=== PATIENT | male | born 1940 | race Caucasian/White ===

== ENCOUNTER 2020-08-14 05:11 | Emergency (ER) | payer MEDICARE, SELFPAY ==
[2020-08-14] VITALS (10 sets, daily range): BP systolic 92–124; BP diastolic 63–77; PULSE 68–124; RESP 14–37; TEMP 37.1; O2SAT 92–100
--- NOTE | ~2020-08-14 | XR_ITS ---
EXAMINATION: XR chest 1V portable DATE: 08/14/2020 06:50 INDICATION: Shortness of breath. Hypoxia. Weakness. TECHNIQUE: A single frontal view of the chest was obtained. COMPARISON: Chest 2 views 10/06/2018, CT abdomen and pelvis 07/11/2018 FINDINGS: The lung volumes are normal. The lungs demonstrate lucencies and diffuse coarse interstitia l opacities with a basilar predominance. A calcified right lung nodule is consistent with old granulo matous disease. No pleural effusion or pneumothorax. The heart size is normal. IMPRESSION: 1. Worsened diffuse lung disease, likely mild pulmonary edema superimposed on a combination of emphys yung and chronic interstitial lung disease. Reviewed, dictated and finalized at location A. IMPRESSION: 1. Worsened diffuse lung disease, likely mild pulmonary edema superimposed on a combination of emphysema and chronic interstitial lung disease.
--- NOTE | 2020-08-14 05:34 | ECG_ITS ---
Measurements Intervals [place] Rate: 112 P: 80 KS: 145 QRS: 64 QRSD: 94 T: 18 QT: 326 QTc: 445 Interpretive Statements SINUS TACHYCARDIA POSSIBLE LEFT ATRIAL ENLARGEMENT NONSPECIFIC ST & T-WAVE ABNORMALITY- INFERIOR LEADS BASELINE ARTIFACT- I, II, III, AVR, AVL AVF, V1-V6 ABNORMAL ECG Electronically Signed On 08-14-2020 6:49:34 CDT by Rafael Mayfield D.O.
--- NOTE | 2020-08-14 05:43 | ED.GENADULT ---
HPI - General Adult General Chief complaint: Weakness <Flaca Guzman MD - Last Filed: 08/23/20 12:02> Stated complaint: sob <Flaca Guzman MD - Last Filed: 08/23/20 12:02> Time Seen by Provider: 08/14/20 05:16 <Flaca Guzman MD - Last Filed: 08/23/20 12:02> Source: EMS <Flaca Guzman MD - Last Filed: 08/23/20 12:02> Mode of arrival: EMS <Flaca Guzman MD - Last Filed: 08/23/20 12:02> Limitations: clinical condition and dementia <Flaca Guzman MD - Last Filed: 08/23/20 12:02> History of Present Illness HPI narrative: This patient is a 79 year old male with history of CVA, Dementia and parkinon's who presents from [facility] for evaluation of hypoxia. Nursing staff reports that around 330 am this morning patient starting having shortness of breath. Patient was noted to have increased secretions and he was suctioned at the nursing. Nursing reports reports patient's room air oxygen saturation was in the 80s at the assisted. EMS states patient's oxgen saturation on room air is in the high 80s. Patient is unable to given any history. He is oriented to himself, and it is report that patient is at his baseline mental status. He has a history of combativeness. <Flaca Guzman MD - Last Filed: 08/23/20 12:02> Related Data Allergies/adverse reactions: Allergies Allergy/AdvReac Type Severity Reaction Status Date / Time Penicillins AdvReac Intermediate Unknown Verified 10/06/18 01:25 <Flaca Guzman MD - Last Filed: 08/23/20 12:02> Review of Systems Review of Systems: ROS unobtainable: Yes unobtainable due to medical condition <Flaca Guzman MD - Last Filed: 08/23/20 12:02> [facility] Past Medical History Medical History: Medical History (Updated 08/15/20 @ 00:00 by Background Daemon) CVA (cerebral vascular accident) Dementia Diabetes mellitus GERD (gastroesophageal reflux disease) Hyperlipidemia Parkinson's disease <Flaca Guzman MD - Last Filed: 08/23/20 12:02> Social History Social History: Social History (Updated 08/14/20 @ 05:46 by Flaca Guzman MD) Alcohol intake: unknown Substance use: unknown Living arrangements: assisted <Flaca Guzman MD - Last Filed: 08/23/20 12:02> Comments surgical history- unknown <Flaca Guzman MD - Last Filed: 08/23/20 12:02> Exam Const: Nutritional Appearance: thin <Flaca Guzman MD - Last Filed: 08/23/20 12:02> Limitations: behavioral limitations <Flaca Guzman MD - Last Filed: 08/23/20 12:02> Other: laying shaking with eyes closed, will open mouth slightly on command. <Flaca Guzman MD - Last Filed: 08/23/20 12:02> HENMT: Head: normocephalic and atraumatic <Flaca Guzman MD - Last Filed: 08/23/20 12:02> Face and sinus: face symmetric <Flaca Guzman MD - Last Filed: 08/23/20 12:02> Eyes: Pupils: Equal, round and reactive pupils present <Flaca Guzman MD - Last Filed: 08/23/20 12:02> EOM: EOMs intact bilaterally <Flaca Guzman MD - Last Filed: 08/23/20 12:02> Chest: Chest palpation & inspection: normal inspection of the chest <Flaca Guzman MD - Last Filed: 08/23/20 12:02> Resp: Effort & Inspection: not labored and tachypneic <Flaca Guzman MD - Last Filed: 08/23/20 12:02> Auscultation: rales bilateral <Flaca Guzman MD - Last Filed: 08/23/20 12:02> Cardio: Rate: tachycardic <Flaca Guzman MD - Last Filed: 08/23/20 12:02> Rhythm: regular rhythm <Flaca Guzman MD - Last Filed: 08/23/20 12:02> Heart sounds: no murmurs <Flaca Guzman MD - Last Filed: 08/23/20 12:02> GI: GI Palp: Yes Soft to palpation, No Tenderness to palpation present (GI), No Guarding due to palpation present (GI) and No Rigid due to palpation <Flaca Guzman MD - Last Filed: 08/23/20 12:02> Skin: General skin exam: normal color <Flaca Guzman MD - Last Filed: 08/23/20 12:02> Rashes:
[2020-08-14 05:45] LABS: Basophils Absolute Auto 0.1 K/mm3 (0.0-0.1); Basophils Percent Auto 0.3 % (0.2-1.2); Eosinophils Percent Auto 0.1 % (0-4.4); Hematocrit 44.6 % (42.0-52.0); Hemoglobin 14.8 g/dL (14.0-18.0); Immature Granulocyte Absolute 0.05 K/mm3 (0.00-0.031); Immature Granulocyte Percent A 0.3 % (0-0.5); Lymphocytes Absolute Auto 1.08 K/mm3 (0.9-3.2); Lymphocytes Percent Auto 6.9 % (18.3-44.2); Mean Corpuscular HGB Conc 33.2 g/dl (32-36); Mean Corpuscular Hemoglobin 30.6 pg (26-34); Mean Corpuscular Volume 92.1 fl (80-100); Mean Platelet Volume 12.1 fl (7.4-10.4); Monocytes Absolute Auto 1.3 K/mm3 (0.1-0.6); Monocytes Percent Auto 8.4 % (2.6-8.5); Neutrophils Absolute Auto 13.1 K/mm3 (1.3-6.7); Platelet Count Result 313 k/mm3 (150-375); Red Blood Count 4.84 M/mm3 (4.6-6.20); Red Cell Distribution Width 13.2 % (11.5-14.5); White Blood Count 15.6 K/mm3 (4.5-10.0)
[2020-08-14 05:52] LABS: Alveolar/Arterial O2 Gradient 121.8 mmHg; Base Excess ABG -2.1 mEq/l (+/-2.0); Carboxyhemoglobin 0.9 % THb (0-2.0); Fractional Inspired Oxygen 34 %; HCO3 ABG 21.9 mEq/l (22.0-26.0); Methemoglobin ABG 0.3 %THb (0-1.5); Oxygen Content ABG 20.1 %vol (16.0-22.0); Oxygen Saturation ABG 95.9 % (95.0-100.0); Oxyhemoglobin 94.7 % THb (90.0-100.0); PCO2 ABG 35.5 mmHg (35.0-45.0); PO2 ABG 79.3 mmHg (80.0-100.0); PO2 FiO2 Ratio Arterial Blood 2.33 %; Reduced Hemoglobin 4.1 %THb (0-5.0); Total Hemoglobin 15.1 g/dL (12.0-18.0); pH ABG 7.408 (7.350-7.450)
[2020-08-14 05:53] LABS: Device NASAL CANNULA; Liters per Minute 3.5 LPM; Modified Allen's Test Pass; Site Drawn RIGHT RADIAL
[2020-08-14 06:06] LABS: Alanine Aminotransferase 14 U/L (4-50); Albumin Level 4.1 g/dL (3.5-5.1); Alkaline Phosphatase 74 U/L (38-126); Anion Gap 10 mmol/L (8-16); Aspartate Amino Transferase 64 U/L (17-59); Bilirubin,Total 1.3 mg/dL (0.2-1.3); Blood Urea Nitrogen 23 mg/dL (9-20); CRP 8.3 mg/dL (<1.0); Calcium 9.6 mg/dL (8.4-10.2); Carbon Dioxide 24 mmol/L (22-30); Chloride 104 mmol/L (98-107); Estimated CRCL calculation 58 ml/min; Estimated Glomerular Filt Rate > 60; Glucose 125 mg/dL (75-110); Potassium 4.1 mmol/L (3.4-5.0); Sodium 138 mmol/L (137-145)
[2020-08-14] MEDS: SODIUM CHLORIDE 0.9% IV 1,000 ML 999 ML IV CONT (06:10)
[2020-08-14 06:11] LABS: NT Pro B Type Natriuretic Pept 4200 PG/ML (5-100); Troponin I 0.052 ng/mL (0.000-0.034)
[2020-08-14 06:24] LABS: Add Urine Microscopic? YES; Appearance Urine Cloudy (Clear); Bilirubin Urine Negative (Negative); Color Urine Yellow (Yellow); Glucose Urine UA Negative (Negative); Ketones Urine Trace mg/dL (Negative); Leukocyte Esterase Ur Trace LEU/UL (Negative); Mucus Urine Heavy /lpf; Nitrate Urine Positive (Negative); Protein Urine 1+ mg/dL (Negative); Specific Grav Ur 1.024 (1.001-1.035)
[2020-08-14 06:24] LABS: Lactic Acid Reflex 2.6 mmol/L (0.7-2.1)
--- NOTE | 2020-08-14 06:24 | PC.NURSE ---
Spoke with patients daughter and JANET Montague about patients status. Pt arrived with signed DNR paper from nursing facility and this RN confirmed with daughter that patients wishes comfort measures only. She stated that he has been refusing his medications at the group home and with his declining health she wishes to speak with someone about starting hospice services. RN notified MD of daughters wishes.
[2020-08-14 06:26] LABS: Blood Urine Negative (Negative)
[2020-08-14 06:28] LABS: INR 1.1; Prothrombin Time 13.9 Seconds (11.1-14.7)
[2020-08-14 06:29] LABS: Partial Thromboplastin Time 28.1 SECONDS (22.3-36.8)
[2020-08-14 06:52] LABS: Valproic Acid < 10.0 ug/mL (50-120)
--- NOTE | 2020-08-14 09:06 | PCCCNOTE ---
spoke with daughter Donny who is POA for this patient, regarding hospice. Francie is requesting information about hospice and selected [facility]. [facility] contacted to ensure that the patient's physician there, Dr Woods, works with hospice regarding orders and patient care. This was confirmed by Tara at [facility]. [facility]'s contacted and patient information provided and faxed to [phone]
[2020-08-14 09:11] LABS: Reflex Lactic Acid Yes or No Add Lactic
--- NOTE | 2020-08-14 09:17 | PC.NURSE ---
PER CARE COORDINATION FAMILY HAS REQUESTED A HOSPICE CONSULT. CARE COORDINATION STATES THAT VITAS WILL BE HERE IN THE NEXT 30 MINUTES TO DISCUSS CARE OPTIONS WITH PT FAMILY.
--- NOTE | 2020-08-14 09:53 | PC.NURSE ---
VITAS AT BEDSIDE DISCUSSING HOSPICE WITH PT FAMILY.
--- NOTE | 2020-08-14 09:56 | PC.NURSE ---
1ST LITER NS COMPLETE, DISCUSSED 2ND LITER WITH PCP ORESTES R/T PT BNP 4200. ERP ORESTES STATES TO HOLD OFF, AND THAT HE WILL THINK ABOUT WHETHER OR NOT HE WANTS IT. HOLDING NS BOLUS AT THIS TIME.
[2020-08-14 10:04] LABS: Lactic Acid 2.8 mmol/L (0.7-2.1)
--- NOTE | 2020-08-14 10:33 | PC.NURSE ---
KARI CARLISLE INFORMED THAT THE HOSPICE NURSE WOULD LIKE TO SPEAK TO HIM ABOUT HIS PLAN OF CARE.
--- NOTE | 2020-08-14 10:46 | PC.NURSE ---
STILL AWAITING DIRECTION FROM ERP ORESTES ABOUT SECOND LITER NS.
--- NOTE | 2020-08-14 11:10 | PC.NURSE ---
REPORT GIVEN TO JENNIFER GIORDANO AT THIS TIME, BEDSIDE, HE HAS ASSUMED PT CARE.
--- NOTE | 2020-08-14 13:42 | PC.NURSE ---
[facility]i accepted pt transfer. eta is [id number]
--- NOTE | 2020-08-14 13:49 | PC.NURSE ---
[facility] has arrived
[2020-08-14 16:34] LABS: SARS-CoV-2 RNA PCR Negative
== END 2020-08-14 13:10 | disposition hospice, home (50) ==
PROVIDERS: Emergency Provider General Practice; PCP Internal Medicine
DX: A41.9 Sepsis, unspecified organism (principal); J96.01 Acute respiratory failure with hypoxia; F03.90 Unspecified dementia, unspecified severity, without behavioral disturbance, psychotic disturbance, mood disturbance, and anxiety; G20 Parkinson's disease; E11.9 Type 2 diabetes mellitus without complications; K21.9 Gastro-esophageal reflux disease without esophagitis; E78.5 Hyperlipidemia, unspecified; Z66 Do not resuscitate; Z86.73 Personal history of transient ischemic attack (TIA), and cerebral infarction without residual deficits; Z20.828 Contact with and (suspected) exposure to other viral communicable diseases; R00.0 Tachycardia, unspecified; R94.31 Abnormal electrocardiogram [ECG] [EKG]; J98.4 Other disorders of lung
CPT/HCPCS: 36415; 36600; 71045; 80053; 80164; 81001; 82375; 82805; 83050; 83605; 83880; 84484; 85025; 85610; 85730; 86140; 87040; 87086; 87635; 93005; 96361; 96365; 96366; 99284; C9803; J1956; J7030; U0003